=== PATIENT | female | born 1970 | race Caucasian/White ===

== ENCOUNTER → 2017-05-05 | Outpatient (CLI) | payer BC | LOC: MHCPAIN 14:10 | DX: G89.29 Other chronic pain (principal); M50.122 Cervical disc disorder at C5-C6 level with radiculopathy; F17.210 Nicotine dependence, cigarettes, uncomplicated | CPT/HCPCS: G0463 ==

== ENCOUNTER → 2017-05-27 | Outpatient (CLI) | payer BC | LOC: MHCPAIN 15:04 | DX: G89.29 Other chronic pain (principal); M50.122 Cervical disc disorder at C5-C6 level with radiculopathy; F17.210 Nicotine dependence, cigarettes, uncomplicated | CPT/HCPCS: G0463 ==

== ENCOUNTER → 2017-06-18 | Outpatient (CLI) | payer BC | LOC: MHCPAIN 09:42 | DX: M50.122 Cervical disc disorder at C5-C6 level with radiculopathy (principal); M99.51 Intervertebral disc stenosis of neural canal of cervical region | CPT/HCPCS: J1100; J2250; J3010; Q9967 ==

== ENCOUNTER → 2017-07-20 | Outpatient (CLI) | payer BC | LOC: MHCPAIN 15:38 | DX: G89.29 Other chronic pain (principal); M50.122 Cervical disc disorder at C5-C6 level with radiculopathy; F17.210 Nicotine dependence, cigarettes, uncomplicated | CPT/HCPCS: G0463 ==

== ENCOUNTER → 2017-10-06 | Outpatient (CLI) | payer BC | LOC: COL.RAD 10-02 09:00 | DX: M47.812 Spondylosis without myelopathy or radiculopathy, cervical region (principal) ==

== ENCOUNTER → 2017-11-24 | Outpatient (CLI) | payer BC | LOC: COL.RAD 15:13 | DX: M43.8X2 Other specified deforming dorsopathies, cervical region (principal); M40.292 Other kyphosis, cervical region ==

== ENCOUNTER → 2018-03-16 | Outpatient (CLI) | payer BC | LOC: COL.RAD 16:10 | DX: M19.042 Primary osteoarthritis, left hand (principal) ==

== ENCOUNTER → 2018-05-03 | Outpatient (CLI) | payer BC | LOC: COL.RAD 14:39 | DX: M99.71 Connective tissue and disc stenosis of intervertebral foramina of cervical region (principal); M48.02 Spinal stenosis, cervical region; M54.12 Radiculopathy, cervical region; Z98.890 Other specified postprocedural states ==

== ENCOUNTER 2018-12-06 18:11 | Emergency (ER) | payer SELFPAY ==
[~2018-12-06] VITALS: Ht 157.5 cm; Wt 71.4 kg
[2018-12-06 18:24] VITALS: TEMP 97
[2018-12-06] MEDS ORDERED: COZAAR100 MG PO (18:53)
[2018-12-06] MEDS ORDERED: VIVLODEX10 MG PO (18:53)
[2018-12-06] MEDS ORDERED: ZOLOFT 25MG25 MG PO (18:57)
[2018-12-06] MEDS ORDERED: MOTRIN 200200 MG/TAB (18:58)
[2018-12-07 03:13] VITALS: BP 159/109; PULSE 94
== END 2018-12-06 21:05 | disposition home or self-care (01) ==
LOC: COL.ER 18:11
DX: S82.892A Other fracture of left lower leg, initial encounter for closed fracture (principal); S82.832A Other fracture of upper and lower end of left fibula, initial encounter for closed fracture; I10 Essential (primary) hypertension; V18.0XXA Pedal cycle driver injured in noncollision transport accident in nontraffic accident, initial encounter; Y92.410 Unspecified street and highway as the place of occurrence of the external cause
CPT/HCPCS: J1170; J2405; J2704; J3010; J7030

== ENCOUNTER → 2018-12-09 | Outpatient (CLI) | payer SELFPAY ==
[~2018-12-09] MED LIST: COZAAR100 MG PO; MOTRIN 200200 MG/TAB; VIVLODEX10 MG PO; ZOLOFT 25MG25 MG PO
== END ==
LOC: COL.RAD 14:30
DX: S82.892A Other fracture of left lower leg, initial encounter for closed fracture (principal)

== ENCOUNTER → 2018-12-17 | Outpatient (CLI) | payer SELFPAY ==
[2018-12-17 15:51] LABS: ALBUMIN 4.4 gm/dL (3.5-5.0); BILIRUBIN,TOTAL 0.6 mg/dL (0.0-1.0); CREATININE, serum 0.46 (0.52-1.25); POTASSIUM 4.1 mmol/L (3.4-5.0); TOTAL PROTEIN 8.2 gm/dL (6.4-8.2)
[2018-12-17 16:03] LABS: BASO % 0.4 % (0.0-2.0); EOS # 0.3 (0.0-0.7); EOS % 2.7 % (0-4.0); GRAN # 7.1 (1.4-6.5); GRAN % 67.3 % (42.2-75.2); HEMATOCRIT 44.2 % (37.0-47.0); LYMPH # 2.3 (1.2-3.4); LYMPH % 21.9 % (20.0-51.0); MEAN CELL VOLUME 89 fl (80.0-100.0); MEAN CORPUSCULAR HEMOGLOBIN 30 pg (27.0-31.0); MEAN CORPUSCULAR HGB CONC 34 g/dl (33.0-37.0); MEAN PLATELET VOLUME 10.1 fl (7.4-10.4); MONO # 0.8 (0.1-0.6); MONO % 7.5 % (1.7-9.3); PLATELET COUNT 432 K/mm3 (130-400); PROTHROMBIN TIME 11.1 SECONDS (9.7-12.8); RED BLOOD COUNT 4.99 M/mm3 (4.10-5.30); REDCELL DISTRIBUTION WIDTH-CV 14.6 % (11.5-14.5)
== END ==
LOC: COL.VAS 12:48
PROVIDERS: Family Medicine
DX: I82.4Z2 Acute embolism and thrombosis of unspecified deep veins of left distal lower extremity (principal)

== ENCOUNTER → 2018-12-21 | Outpatient (CLI) | payer SELFPAY | LOC: ZCOL.LAB 17:46 | DX: Z01.812 Encounter for preprocedural laboratory examination (principal); Z86.14 Personal history of Methicillin resistant Staphylococcus aureus infection ==

== ENCOUNTER 2018-12-30 05:25 | Day surgery (SDC) | payer SELFPAY ==
[~2018-12-30] VITALS: Ht 157.5 cm; Wt 68.5 kg
[2018-12-30] VITALS (10 sets, daily range): BP systolic 104–143; BP diastolic 72–99; PULSE 76–101; TEMP 98.4–98.6
[2018-12-30] MEDS ORDERED: PERCOCET 325 MG1 TA2 PO (06:28)
[2018-12-30] MEDS ORDERED: HCTZ 25MG TAB25 MG PO (06:29)
[2018-12-30] MEDS ORDERED: ZOLOFT 50MG50 MG PO (06:30)
[2018-12-30] MEDS ORDERED: COZAAR 50MG50 MG/TAB PO (06:30)
[2018-12-30] MEDS ORDERED: NORCO 325 MG-7.1 TAB PO (06:31)
[2018-12-30] MEDS ORDERED: MOBIC15 MG PO ×2 (06:31→12:02)
[2018-12-30] MEDS ORDERED: ELIQUIS 5MG PO (06:35)
[2018-12-30] MEDS ORDERED: PROAIR HFA0.09 MG/AC IH (06:36)
--- NOTE | 2018-12-30 09:20 | NUR ---
Patient returns to room 8 per cart from surgery and arouses to verbal stimuli. Foot of cart is elevated and ice on the ankle. Post op boot in place. Toes warm to touch and is able to wiggle toes. Room air sats 95% and temp 98.5. IV fluids infusing and siderails up x2. Allowed to rest.
--- NOTE | 2018-12-30 09:35 | NUR ---
Sleeping when not disturbed. Room air sats 94%. Allowed to rest.
--- NOTE | 2018-12-30 09:50 | NUR ---
Continues to rest with the foot of the cart elevated. Ice on the ankle.
--- NOTE | 2018-12-30 10:05 | NUR ---
IV fluids and resting without complaints.
--- NOTE | 2018-12-30 10:20 | NUR ---
Continues to rest without complaints.
--- NOTE | 2018-12-30 10:50 | NUR ---
Continues to rest without any complaints of pain or nausea.
--- NOTE | 2018-12-30 11:20 | NUR ---
Foot of bed is elevated and ice on the ankle. Room air 95%.
--- NOTE | 2018-12-30 11:45 | NUR ---
Eating toast and sipping on Sprite. Denies nausea. States that her left leg remains numb from the block placed. Toes warm to touch. Post op shoe on.
[2018-12-30] MEDS ORDERED: NORCO 325 MG-51 TAB PO ×2 (11:57→12:01)
[2018-12-30] MEDS ORDERED: COLACE 100100 MG/CAP PO (12:02)
[2018-12-30] MEDS ORDERED: ZOFRAN 4MG T4 MG/TAB PO (12:03)
--- NOTE | 2018-12-30 12:43 | NUR ---
Returns to room per wheelchair after voiding large amounts of clear yello urine. States that her left leg remains numb from the block. Epifanio wrap dressing clean and dry. Toes warm and pink. Assisted with dressing. INT needle discontinued. Given dismissal instructions for home cares and provided scripts for Lucas, Zofran, Colace, and Meloxicam. Instructed to continue to take Eliquis but no aspirin or motrin. Reinforced importance of keeping the foot of the bed elevated to minimize swelling and discomfort. Instructed to take pain medications with food or snack. Provided office number for questions and concerns.
--- NOTE | 2018-12-30 12:50 | NUR ---
Patient dismissed to home per private vehicle driven by friend and taken to the front door per wheelchair and assisted into car by this RN with instructions and scripts in hand.
== END 2018-12-30 12:50 | disposition home or self-care (01) ==
LOC: SDCO 05:25
PROVIDERS: Orthopaedic Surgery Sports Medicine
DX: S93.05XA Dislocation of left ankle joint, initial encounter (principal); S82.852A Displaced trimalleolar fracture of left lower leg, initial encounter for closed fracture; X58.XXXA Exposure to other specified factors, initial encounter; Z79.899 Other long term (current) drug therapy; I10 Essential (primary) hypertension; J44.9 Chronic obstructive pulmonary disease, unspecified; F17.210 Nicotine dependence, cigarettes, uncomplicated; M19.90 Unspecified osteoarthritis, unspecified site; F32.9 Major depressive disorder, single episode, unspecified; F41.9 Anxiety disorder, unspecified; Z86.718 Personal history of other venous thrombosis and embolism; Z79.01 Long term (current) use of anticoagulants
CPT/HCPCS: C1713; J1100; J1885; J2250; J2405; J2704; J2765; J2795; J3010; J7120

== ENCOUNTER → 2019-01-04 | Outpatient (CLI) | payer SELFPAY ==
[~2019-01-04] MED LIST changes: +COLACE 100100 MG/CAP PO; +COZAAR 50MG50 MG/TAB PO; +ELIQUIS 5MG PO; +HCTZ 25MG TAB25 MG PO; +MOBIC15 MG PO; +NORCO 325 MG-51 TAB PO; +NORCO 325 MG-7.1 TAB PO; +PERCOCET 325 MG1 TA2 PO; +PROAIR HFA0.09 MG/AC IH; +ZOFRAN 4MG T4 MG/TAB PO; +ZOLOFT 50MG50 MG PO
== END ==
LOC: COL.VAS 10:34
DX: M79.89 Other specified soft tissue disorders (principal); Z86.718 Personal history of other venous thrombosis and embolism

== ENCOUNTER → 2019-08-02 | Outpatient (CLI) | payer SELFPAY | LOC: COL.VAS 14:14 | DX: M79.89 Other specified soft tissue disorders (principal) ==

== ENCOUNTER 2021-06-10 14:45 | Emergency (ER) | payer OTHER ==
[~2021-06-10] VITALS: Ht 157.5 cm; Wt 74.5 kg
[2021-06-10 14:59] VITALS: TEMP 98.3
[2021-06-10 15:20] LABS: BASO % 0.4 % (0.0-2.0); EOS # 0.4 K/mm3 (0.0-0.7); EOS % 5.2 % (0-4.0); GRAN # 4.3 K/mm3 (1.4-6.5); GRAN % 60.7 % (42.2-75.2); HEMATOCRIT 37.5 % (37.0-47.0); HEMOGLOBIN 12.7 g/dl (12.5-16.0); LYMPH # 1.8 K/mm3 (1.2-3.4); LYMPH % 25.5 % (20.0-51.0); MEAN CELL VOLUME 85 fl (80.0-100.0); MEAN CORPUSCULAR HEMOGLOBIN 29 pg (27.0-31.0); MEAN CORPUSCULAR HGB CONC 34 g/dl (33.0-37.0); MONO # 0.6 K/mm3 (0.1-0.6); MONO % 8.1 % (1.7-9.3); PLATELET COUNT 343 K/mm3 (130-400); RED BLOOD COUNT 4.44 M/mm3 (4.10-5.30); REDCELL DISTRIBUTION WIDTH-CV 13.3 % (11.5-14.5)
[2021-06-10 15:33] LABS: PROTHROMBIN TIME 11.6 SECONDS (9.7-12.8)
[2021-06-10 15:36] LABS: PARTIAL THROMBOPLASTIN TIME 29.8 SECONDS (26.0-37.0)
[2021-06-10 15:38] LABS: ALANINE AMINOTRANSFERASE 10 U/L (0-55); ALBUMIN 3.7 gm/dL (3.5-5.0); ALKALINE PHOSPHATASE 50 U/L (40-150); ANION GAP 12 mmol/L (7-16); AST,SGOT 14 U/L (5-34); BILIRUBIN,TOTAL 0.6 mg/dL (0.2-1.2); BLOOD UREA NITROGEN 14 mg/dL (10-20); CALCIUM 8.8 mg/dL (8.4-10.2); CARBON DIOXIDE 19 mmol/L (22-29); CHLORIDE 108 mmol/L (98-107); GLUCOSE 145 mg/dL (70-99); POTASSIUM 3.4 mmol/L (3.5-4.5); SODIUM 139 mmol/L (136-145); TOTAL PROTEIN 7.1 gm/dL (6.2-8.1)
[2021-06-10 15:42] LABS: D-DIMER < 200.00 ng/mLDDu (200-230)
[2021-06-10 15:48] LABS: TROPONIN-I < 0.010 ng/mL (0.00-0.033)
[2021-06-10] MEDS ORDERED: PREDNISONE20 MG PO (16:39)
[2021-06-10] MEDS ORDERED: ZITHROMAX Z PA250 MG PO (16:39)
[2021-06-10 16:50] VITALS: BP 166/89; PULSE 99
== END 2021-06-10 16:50 | disposition home or self-care (01) ==
LOC: COL.ER 14:45
PROVIDERS: Family Medicine
DX: J20.9 Acute bronchitis, unspecified (principal); J44.9 Chronic obstructive pulmonary disease, unspecified; Z20.822 Contact with and (suspected) exposure to COVID-19; Z79.899 Other long term (current) drug therapy

== ENCOUNTER → 2021-06-18 | Outpatient (CLI) | payer OTHER ==
[~2021-06-18] MED LIST changes: +PREDNISONE20 MG PO; +ZITHROMAX Z PA250 MG PO
== END ==
LOC: COL.LAB 11:50
DX: R07.89 Other chest pain (principal)

== ENCOUNTER → 2021-07-24 | Outpatient (CLI) | payer OTHER | LOC: COL.LAB 15:53 | DX: Z01.818 Encounter for other preprocedural examination (principal); Z98.1 Arthrodesis status ==

== ENCOUNTER 2021-10-06 22:42 | Emergency (ER) | payer OTHER ==
[~2021-10-06] VITALS: Ht 157.5 cm; Wt 77.3 kg
[2021-10-06 23:01] VITALS: TEMP 98.2
[2021-10-06 23:22] LABS: BASO % 0.3 % (0.0-2.0); EOS # 0.3 K/mm3 (0.0-0.7); EOS % 3.2 % (0.0-4.0); GRAN # 5.8 K/mm3 (1.4-6.5); GRAN % 64.3 % (42.2-75.2); HEMATOCRIT 41.1 % (37.0-47.0); HEMOGLOBIN 13.8 g/dl (12.5-16.0); LYMPH # 2.4 K/mm3 (1.2-3.4); LYMPH % 26.4 % (20.0-51.0); MEAN CELL VOLUME 84 fl (80.0-100.0); MEAN CORPUSCULAR HEMOGLOBIN 28 pg (27-31); MEAN CORPUSCULAR HGB CONC 34 g/dl (33.0-37.0); MEAN PLATELET VOLUME 10.1 fl (7.4-10.4); MONO # 0.5 K/mm3 (0.1-0.6); MONO % 5.6 % (1.7-9.3); PLATELET COUNT 297 K/mm3 (130-400); RED BLOOD COUNT 4.88 M/mm3 (4.10-5.30); REDCELL DISTRIBUTION WIDTH-CV 15.6 % (11.5-14.5)
[2021-10-06 23:32] LABS: INR 1.1 (0.8-3.0); PROTHROMBIN TIME 12.7 SECONDS (9.7-12.8)
[2021-10-06 23:35] LABS: D-DIMER < 200.00 ng/mLDDu (200-230)
[2021-10-06 23:40] LABS: ALANINE AMINOTRANSFERASE 16 U/L (0-55); ALBUMIN 3.9 gm/dL (3.5-5.0); ALKALINE PHOSPHATASE 57 U/L (40-150); ANION GAP 10 mmol/L (7-16); AST,SGOT 16 U/L (5-34); BILIRUBIN,TOTAL 0.4 mg/dL (0.2-1.2); BLOOD UREA NITROGEN 12 mg/dL (10-20); C-REACTIVE PROTEIN 0.18 mg/dL (0.00-0.50); CALCIUM 9.3 mg/dL (8.4-10.2); CARBON DIOXIDE 24 mmol/L (22-29); CHLORIDE 104 mmol/L (98-107); CREATININE, serum 0.75 mg/dL (0.57-1.11); GLUCOSE 91 mg/dL (70-99); POTASSIUM 3.4 mmol/L (3.5-4.5); SODIUM 138 mmol/L (136-145); TOTAL PROTEIN 7.5 gm/dL (6.2-8.1)
[2021-10-06 23:46] LABS: TROPONIN-I < 0.010 ng/mL (0.00-0.033)
[2021-10-07] MEDS ORDERED: PREDNISONE20 MG PO (00:39)
[2021-10-07] MEDS ORDERED: ZITHROMAX Z PA250 MG PO (00:39)
[2021-10-07 00:54] VITALS: BP 136/91; PULSE 74
== END 2021-10-07 00:54 | disposition home or self-care (01) ==
LOC: COL.ER 22:42
PROVIDERS: Nurse Practitioner
DX: M79.662 Pain in left lower leg (principal); R06.00 Dyspnea, unspecified; F17.200 Nicotine dependence, unspecified, uncomplicated; Z88.0 Allergy status to penicillin
CPT/HCPCS: J2270; J7512

== ENCOUNTER 2022-01-04 17:03 | Emergency (ER) | payer OTHER ==
[~2022-01-04] VITALS: Ht 157.5 cm; Wt 75.9 kg
[2022-01-04 17:13] VITALS: TEMP 98.3
[2022-01-04 18:04] VITALS: BP 148/92; PULSE 85
== END 2022-01-04 18:06 | disposition home or self-care (01) ==
LOC: COL.ER 17:03
DX: S90.32XA Contusion of left foot, initial encounter (principal); Z28.310 Unvaccinated for COVID-19; W20.8XXA Other cause of strike by thrown, projected or falling object, initial encounter

== ENCOUNTER 2022-03-22 18:45 | Emergency (ER) | payer OTHER ==
[~2022-03-22] VITALS: Ht 157.5 cm; Wt 74.5 kg
[2022-03-22 18:49] VITALS: TEMP 98.3
[2022-03-22] MEDS ORDERED: IMITREX100 MG PO (19:16)
[2022-03-22] MEDS ORDERED: LOPRESSOR 550 MG/TAB PO (19:16)
[2022-03-22] MEDS ORDERED: NORVASC 5MG5 MG/TAB PO (19:17)
[2022-03-22] MEDS ORDERED: NURTEC ODT75 MG PO (19:17)
[2022-03-22 20:22] VITALS: BP 172/109; PULSE 90
== END 2022-03-22 20:25 | disposition home or self-care (01) ==
LOC: COL.ER 18:45
DX: S43.401A Unspecified sprain of right shoulder joint, initial encounter (principal); F17.200 Nicotine dependence, unspecified, uncomplicated; Z28.310 Unvaccinated for COVID-19; X50.0XXA Overexertion from strenuous movement or load, initial encounter; Y93.F2 Activity, caregiving, lifting

== ENCOUNTER → 2022-03-27 | Outpatient (CLI) | payer OTHER ==
[~2022-03-27] MED LIST changes: +IMITREX100 MG PO; +LOPRESSOR 550 MG/TAB PO; +NORVASC 5MG5 MG/TAB PO; +NURTEC ODT75 MG PO
[2022-03-27 15:11] LABS: BASO % 0.5 % (0.0-2.0); EOS # 0.4 K/mm3 (0.0-0.7); EOS % 5.5 % (0.0-4.0); GRAN # 4.3 K/mm3 (1.4-6.5); GRAN % 56.8 % (42.2-75.2); HEMATOCRIT 42.2 % (37.0-47.0); HEMOGLOBIN 14.4 g/dl (12.5-16.0); LYMPH # 2.3 K/mm3 (1.2-3.4); LYMPH % 30.4 % (20.0-51.0); MEAN CELL VOLUME 90 fl (80.0-100.0); MEAN CORPUSCULAR HEMOGLOBIN 31 pg (27-31); MEAN CORPUSCULAR HGB CONC 34 g/dl (33.0-37.0); MEAN PLATELET VOLUME 9.7 fl (7.4-10.4); MONO # 0.5 K/mm3 (0.1-0.6); MONO % 6.5 % (1.7-9.3); PLATELET COUNT 296 K/mm3 (130-400)
[2022-03-27 15:26] LABS: ALBUMIN 3.7 gm/dL (3.5-5.0); BILIRUBIN,TOTAL 0.4 mg/dL (0.2-1.2); CALCIUM 9.5 mg/dL (8.4-10.2); CHOLESTEROL RISK RATIO 4.7; CREATININE, serum 0.71 mg/dL (0.57-1.11); POTASSIUM 3.8 mmol/L (3.5-4.5); TOTAL PROTEIN 6.9 gm/dL (6.2-8.1)
[2022-03-27 15:47] LABS: THYROID STIMULATING HORMONE 1.024 uIU/mL (0.350-4.940)
== END ==
LOC: COL.LAB 14:37
DX: Z00.00 Encounter for general adult medical examination without abnormal findings (principal)

== ENCOUNTER 2024-02-19 17:48 | Emergency (ER) | payer OTHER ==
[~2024-02-19] VITALS: Ht 157.5 cm; Wt 78.2 kg
[~2024-02-19 17:48] MED LIST changes: +CRUTCHES MC
[2024-02-19 18:01] VITALS: TEMP 98.2
[2024-02-19] MEDS ORDERED: Ketorolac 30 MG/ML VIAL IV ONE (19:00)
[2024-02-19 19:01] LABS: BASO % 0.4 % (0.0-2.0); EOS # 0.6 K/mm3 (0.0-0.7); EOS % 5.1 % (0.0-4.0); GRAN # 6.5 K/mm3 (1.4-6.5); GRAN % 60.5 % (42.2-75.2); HEMATOCRIT 42.8 % (37.0-47.0); HEMOGLOBIN 14.5 g/dl (12.5-16.0); LYMPH # 2.9 K/mm3 (1.2-3.4); LYMPH % 26.6 % (20.0-51.0); MEAN CELL VOLUME 89 fl (80.0-100.0); MEAN CORPUSCULAR HEMOGLOBIN 30 pg (27-31); MEAN CORPUSCULAR HGB CONC 34 g/dl (33.0-37.0); MEAN PLATELET VOLUME 9.8 fl (7.4-10.4); MONO # 0.8 K/mm3 (0.1-0.6); MONO % 7.1 % (1.7-9.3); PLATELET COUNT 296 K/mm3 (130-400); RED BLOOD COUNT 4.83 M/mm3 (4.10-5.30); REDCELL DISTRIBUTION WIDTH-CV 13.3 % (11.5-14.5)
[2024-02-19 19:16] LABS: ALBUMIN 3.9 g/dL (3.5-5.0); BILIRUBIN,TOTAL 0.3 mg/dL (0.2-1.2); CALCIUM 9.5 mg/dL (8.4-10.2); CREATININE, serum 0.74 mg/dL (0.57-1.11); POTASSIUM 3.5 mEq/L (3.5-4.5); TOTAL PROTEIN 7.5 g/dl (6.2-8.1)
[2024-02-19 19:37] LABS: COLLECTION METHOD CLEAN CATCH; URINE COLOR Yellow (YELLOW)
[2024-02-19 19:38] LABS: PH 5.5 (5.0-8.5); URINE APPEARANCE CLEAR (CLEAR/HAZY); URINE BLOOD 2+ (NEGATIVE); URINE GLUCOSE Negative (NEGATIVE); URINE KETONE Negative (NEGATIVE); URINE NITRATE Negative (NEGATIVE); URINE PROTEIN(semi-quant) Negative (NEGATIVE); URINE UROBILINOGEN 0.2 E.U/dL (0.2-1.0)
[2024-02-19] MEDS ORDERED: Iohexol 300 - 100 ML VIAL IV ONE (20:08)
[2024-02-19] MEDS ORDERED: NS 50 ML IV ONE (20:12)
[2024-02-19] MEDS ORDERED: NORCO 325 MG-51 TAB PO (21:25)
[2024-02-19 21:45] VITALS: BP 151/94; PULSE 82
== END 2024-02-19 21:45 | disposition home or self-care (01) ==
LOC: COL.ER 17:48
PROVIDERS: Physician Assistant
DX: R10.2 Pelvic and perineal pain (principal); F17.210 Nicotine dependence, cigarettes, uncomplicated
CPT/HCPCS: J1885; Q9967

== ENCOUNTER 2024-05-11 18:26 | Emergency (ER) | payer OTHER ==
[~2024-05-11] VITALS: Ht 157.5 cm; Wt 78.6 kg
[~2024-05-11 18:26] MED LIST changes: +FLEXERIL 1010 MG/TAB PO; +NAPROSYN500 MG PO
[2024-05-11 18:31] VITALS: TEMP 97.7
[2024-05-11 19:00] LABS: BASO % 0.3 % (0.0-2.0); EOS # 0.5 K/mm3 (0.0-0.7); EOS % 4.7 % (0.0-4.0); GRAN % 55.7 % (42.2-75.2); HEMATOCRIT 47.3 % (37.0-47.0); HEMOGLOBIN 16.4 g/dl (12.5-16.0); LYMPH # 3.4 K/mm3 (1.2-3.4); LYMPH % 31.6 % (20.0-51.0); MEAN CELL VOLUME 88 fl (80.0-100.0); MEAN CORPUSCULAR HEMOGLOBIN 31 pg (27-31); MEAN CORPUSCULAR HGB CONC 35 g/dl (33.0-37.0); MONO # 0.8 K/mm3 (0.1-0.6); MONO % 7.3 % (1.7-9.3); PLATELET COUNT 313 K/mm3 (130-400); RED BLOOD COUNT 5.38 M/mm3 (4.10-5.30); REDCELL DISTRIBUTION WIDTH-CV 12.8 % (11.5-14.5)
[2024-05-11] MEDS ORDERED: Morphine 4 MG/ML VIAL IV ONE (19:00)
[2024-05-11 19:15] LABS: ALBUMIN 4.1 g/dL (3.5-5.0); BILIRUBIN,TOTAL 0.2 mg/dL (0.2-1.2); CREATININE, serum 0.73 mg/dL (0.57-1.11); POTASSIUM 3.6 mEq/L (3.5-4.5); TOTAL PROTEIN 8.5 g/dl (6.2-8.1)
[2024-05-11] MEDS ORDERED: Iohexol 350 - 100 ML VIAL IV ONE (19:15)
[2024-05-11] MEDS ORDERED: NS 100 ML IV ONE (19:16)
[2024-05-11 19:21] LABS: TROPONIN-I 0.014 ng/mL (0.00-0.033)
[2024-05-11] MEDS ORDERED: hydrALAZINE 20 MG/ML 1 ML VIAL IV ONE (20:00)
[2024-05-11 20:41] VITALS: BP 162/113; PULSE 78
== END 2024-05-11 20:43 | disposition home or self-care (01) ==
LOC: COL.ER 18:26
PROVIDERS: Emergency Medicine
DX: R07.89 Other chest pain (principal); F17.200 Nicotine dependence, unspecified, uncomplicated
CPT/HCPCS: J0360; J2270; Q9967